=== PATIENT | male | born 1995 | race Caucasian/White ===

== ENCOUNTER 2021-07-12 12:25 | Emergency (ER) | payer SELFPAY ==
[~2021-07-12] VITALS: Ht 172.7 cm; Wt 83.1 kg
[2021-07-12 12:46] VITALS: BP 130/82
[2021-07-12] MEDS ORDERED: DIPH,PERTUSS(ACELL),TET VAC/PF 0.5 ML SYRINGE. VAX IM ONE (13:00)
--- NOTE | 2021-07-12 13:28 | RAD ---
3 views right hand HISTORY: Laceration glass AP lateral oblique views The visualized osseous structures appear normal. There is no radiopaque foreign body. IMPRESSION: No acute findings. Electronically signed by: Chuck Hunt III, MD (07/12/2021 1:26 PM) [facility]
[2021-07-12] MEDS ORDERED: LIDOCAINE 2% 20 ML VIAL. IJ ONE (14:15)
[2021-07-12] MEDS ORDERED: BACITRACIN ZINC TOPICAL OINT PACKET. TP ONE (14:15)
[2021-07-12] MEDS ORDERED: NEOMY/BACITR/POLYMYXIN OINT PACKET. TP ONE (14:16)
--- NOTE | 2021-07-12 14:23 | PHYS DOC ---
Past History Past Surgical History: No Surgical History (VALENTE AL APRN) Adult General Chief Complaint Chief Complaint: LACERATION/AVULSION HPI HPI Patient is a 26-year-old male who presents to the emergency department reporting he was carrying a large plate glass object when it broke lacerating his right middle knuckle yesterday evening approximately 2200. Patient reports his last tetanus immunization was greater than 5 years ago. Patient reports he applied pressure and it did not bleed much but noticed it was bleeding this morning when he woke up. Patient reports 2 out of 10 pain to the laceration site. Patient does not know if there is glass in the laceration or not. Patient denies recent fever or chills. Denies other physical complaints or physical concerns. (VALENTE AL APRN) Review of Systems Review of Systems 14 body systems of review of systems have been reviewed. See HPI for pertinent positives and negative responses, otherwise all other systems are negative, nonpertinent or noncontributory. Constitutional: Negative except as outlined in HPI above. Skin: Negative except as outlined in HPI above. Eyes: Negative except as outlined in HPI above. HENT: Negative except as outlined in HPI above. Respiratory: Negative except as outlined in HPI above. Cardiovascular: Negative except as outlined in HPI above. GI: Negative except as outlined in HPI above. : Negative except as outlined in HPI above. Musculoskeletal: Negative except as outlined in HPI above. Integument: Negative except as outlined in HPI above. Neurologic: Negative except as outlined in HPI above. Endocrine: Negative except as outlined in HPI above. Lymphatic: Negative except as outlined in HPI above. Psychiatric: Negative except as outlined in HPI above. (VALENTE AL APRN) Current Medications Current Medications Current Medications Medications (Trade) Dose Ordered Sig/Myra Start Time Stop Time Status Last Admin Dose Admin Bacitracin (Bacitracin Topical Pkt) 1 pkt 1X ONCE 07/12/21 14:15 07/12/21 14:16 UNV Diphtheria/ Pertussis/Tetanus Vacc (ADACEL TDap SYRINGE) 0.5 ml ONCE ONCE 07/12/21 13:00 07/12/21 13:01 DC Lidocaine HCl (Lidocaine 2%) 20 ml 1X ONCE 07/12/21 14:15 07/12/21 14:16 UNV (VALENTE AL APRN) Allergies Allergies Allergies Coded Allergies Type Severity Reaction Last Updated Verified Penicillins Allergy Intermediate 07/12/21 Yes (VALENTE AL APRN) Physical Exam Physical Exam Constitutional: Well developed, well nourished, no acute distress, non-toxic appearance. 26-year-old male in no apparent distress. HENT: Normocephalic, atraumatic. Eyes: Conjunctiva normal, no discharge. Neck: Normal range of motion, no stridor. Cardiovascular: No cyanosis appreciated, distal cap refill less than 2 seconds. Lungs & Thorax: Patient is in no respiratory distress, no audible adventitious lung sounds appreciated. Abdomen: Nontender, no abnormalities noted. Skin: Warm, dry, no erythema, no rash. See extremity note for focused skin examination. Back: No tenderness, no deformities. Extremities: No tenderness, no cyanosis, no clubbing, ROM intact, no edema. Except for right middle finger dorsal aspect skin surface MIP joint area has 1/2 cm in diameter skin avulsion type injury without other laceration. Full AROM/PROM of fingers, no active bleeding, no deformities, no crepitus appreciated, distal cap refills less than 2 seconds, 2+ bilateral radial pulses. No complaint paresthesias distal to laceration/avulsion injury. Neurologic: Alert and oriented X 3, normal motor function, normal sensory function, no focal deficits noted. Psychologic: Affect normal, judgement normal, mood normal. (VALENTE AL APRN) Current Patient Data Vital Signs Vital Signs Date Time Temp Pulse Resp B/P (MAP) Pulse Ox O2 Delivery O2 Flow Rate FiO2 07/12/21 12:46 103 20 130/82 (98) 98 (VALENTE AL APRN) EKG EKG [] (VALENTE AL APRN) Radiology/Procedures Radiology/Procedures STATUS: REG ER ORD. PHYSICIAN: VALENTE AL APRN REASON: right hand lac from glass mostly 3rd knuckle, also 2 knuckle lac PROCEDURE: HAND RIGHT 3V 3 views right hand HISTORY: Laceration glass AP lateral oblique views The visualized osseous structures appear normal. There is no radiopaque foreign body. IMPRESSION: No acute findings. Electronically signed by: Curly Paul III, MD (07/12/2021 1:26 PM) [facility] DICTATED AND SIGNED BY: CURLY PAUL III, MD DATE: 07/12/21 1325 (VALENTE AL APRN) Heart Score C/O Chest Pain: No Risk Factors: Risk Factors: DM, Current or recent (<one month) smoker, HTN, HLP, family history of CAD, obesity. Risk Scores: Risk Factors: DM, Current or recent (<one month) smoker, HTN, HLP, family history of CAD, obesity. (VALENTE AL APRN) Course & Med Decision Making Course & Med Decision Making Pertinent Labs and Imaging studies reviewed. (See chart for details) 26-year-old male, vital signs reviewed, presents emerged from concerning injury to right middle finger after a large piece of plate glass broke when he was carrying it last night. Physical examination consistent with avulsion injury however will order x-ray to rule out any internal foreign bodies from glass fragments. The patient's tetanus immunization is not up-to-date, will bring up-to-date today in the emergency department with medication Adacel/Tdap. X-ray nonconcerning for radiopaque foreign bodies, examination nonconcerning for foreign bodies, cleansed by ED nursing staff, dressed with bacitracin ointment and Band-Aid. Discussed with patient home wound care, follow-up with primary care for ongoing wound assessment, return to ER precautions and concerns, patient gave verbal understanding of and is amenable to ED discharge planning. Discussed with the patient all findings and diagnostic testing as well as the need to follow-up with their primary care provider for further evaluation and treatment or return to the ED if any new or worsening symptoms. Strict return precautions were also discussed at length, the patient voiced understanding and agreement with the discharge planning. The patient was nontoxic in appearance, in no apparent distress, and hemodynamically stable at the time of disposition. (VALENTE AL APRN) Course & Med Decision Making I was the Attending physician on the above date of service of this patient. This patient was evaluated, examined, treated, and dispositioned from the emergency department by the mid-level practitioner. Although I was working at the time , no assistance was requested. Electronically signed, Odilia Amaya DO (ODILIA AMAYA DO) Kailash Disclaimer Dragon Disclaimer This electronic medical record was generated, in whole or in part, using a voice recognition dictation system. (VALENTE AL APRN) Departure Departure: Impression: Primary Impression: Injury of right middle finger Additional Impression: Need for Tdap vaccination Disposition: 01 HOME / SELF CARE / HOMELESS Condition: GOOD Referrals: PCP,NO (PCP) Patient Instructions: Deep Skin Avulsion Additional Instructions: You are seen today in emergency department after cutting your right middle finger on broken plate glass, your injury is an avulsion injury in which the skin was shaved off, this is nonrepairable with suture. An x-ray was performed today in the emergency department which did not show any signs of retained glass embedded in your skin. As we discussed daily cleansing 2-3 times a day with mild soap and water and application of antibiotic ointment such as bacitracin or Neosporin, cover with Band-Aid. Performed this daily wound cleansing until healed. Your tetanus immunization was brought up to date today in the emergency department, please update your immunization records accordingly. Follow-up with your primary care doctor for ongoing wound assessment. Return to the emergency department for signs and symptoms of infection such as drainage, swelling, or other concerns. Thank you for visiting our Emergency Department. It was a pleasure taking care of you today in the emergency department and we appreciate you trusting us with your care. If any additional problems come up don't hesitate to return to visit us. Please follow up with your primary care provider so they can plan additional care if needed and know about the problem that you had. If symptoms worsen come back to the Emergency Department. Any concerning symptoms that start such as chest pain, shortness of air, weakness or numbness on one side of the body, running high fevers or any other concerning symptoms return to the ER. EMERGENCY DEPARTMENT GENERAL DISCHARGE INSTRUCTIONS Thank you for coming to [facility] (ED) today and trusting us with you care. We trust that you had a positivie experience in our Emergency Department. If you wish to speak to the department management, you may call the director at [phone]. YOUR FOLLOW UP INSTRUCTIONS ARE FOLLOWS: 1. Do you have a private Doctor? If you do not have a private doctor, please ask for a resource list of physicians or clinics that may be able to assist you with follow up care. 2. The Emergency Physician has interpreted your x-rays. The X-Ray specialist will also review them. If there is a change in the findings, you will be notified in 48 hours when at all possible. 3. A lab test or culture has been done, your results will be reviewed and you will be notified if you need a change in treatment. ADDITIONAL INSTRUCTIONS AND INFORMATION: 1. Your care today has been supervised by a physician who is specially trained in emergency care. Many problems require more than one evaluation for a complete diagnosis and treatment. We recommend that you schedule your follow up appointment as recommended to ensure complete treatment of you illness or injury. If you are unable to obtain follow up care and continue to have a problem, or if your condition worsens, we recommend that you return to the ED. 2. We are not able to safely determine your condition over the phone nor are we able to give sound medical advice over the phone. For these safety reasons, if you call for medical advice we will ask you to come to the ED for further evaluation. 3. If you have any questions regarding these discharge instructions please call the ED at [phone]. SAFETY INFORMATION: In the interest of safety, wellness, and injury prevention; we encourage you to wear your sealbelt, if you smoke; quite smoking, and we encourage family to use a protective helmet for bicycling and other sporting events that present an increased risk for head injury. IF YOUR SYMPTOMS WORSEN OR NEW SYMPTOMS DEVELOP, OR YOU HAVE CONCERNS ABOUT YOUR CONDITION; OR IF YOUR CONDITION WORSENS WHILE YOU ARE WAITING FOR YOUR FOLLOW UP APPOI NTMENT; EITHER CONTACT YOUR PRIMARY CARE DOCTOR, THE PHYSICIAN WHOSE NAME AND NUMBER YOU WERE GIVEN, OR RETURN TO THE ED IMMEDIATELY. Problem Qualifiers Primary Impression: Injury of right middle finger Encounter type: initial encounter Qualified Codes: S69.91XA - Unspecified injury of right wrist, hand and finger(s), initial encounter VALENTE AL APRN Jul 12, 2021 14:23 ODILIA AMAYA DO Jul 15, 2021 06:57
== END 2021-07-12 14:30 | disposition home or self-care (01) ==
LOC: ER 12:25
DX: S61.302A Unspecified open wound of right middle finger with damage to nail, initial encounter (principal); Z88.0 Allergy status to penicillin; W25.XXXA Contact with sharp glass, initial encounter; Y93.89 Activity, other specified; Y92.89 Other specified places as the place of occurrence of the external cause; Y99.8 Other external cause status
CPT/HCPCS: 73130; 99283